=== PATIENT | male | born 1935 | race Caucasian/White ===

== ENCOUNTER 2017-03-31 02:24 | Outpatient (CLI) | payer MEDICARE, MEDICAID ==
[2017-03-31 05:48] LABS: Cardiac Risk 5.3 (Less than 4.5)
== END 2017-03-31 02:25 | disposition home or self-care (01) ==
LOC: BURLABSP 02:24
PROVIDERS: ATTEND Clinical Nurse Specialist Medical-Surgical
DX: F29 Unspecified psychosis not due to a substance or known physiological condition (principal); I10 Essential (primary) hypertension
CPT/HCPCS: 36415; 80061